=== PATIENT | male | born 2000 | race Caucasian/White ===

== ENCOUNTER 2023-11-18 01:12 | Emergency (ER) | payer BC ==
[~2023-11-18] VITALS: Ht 180.3 cm; Wt 68.0 kg
[2023-11-18] MEDS ORDERED: FAMOTIDINE/PF INJ 20 MG/2 ML VIAL IV ONE (01:30)
[2023-11-18] MEDS ORDERED: methylPREDNISolone SOD SUCC 125 MG/2ML VIAL ONE (01:30)
[2023-11-18] MEDS ORDERED: EPINEPHRINE (1:1000) 1 MG/ML AMPUL ONE (01:30)
[2023-11-18] MEDS: IV NS 0.9% 1,000 ML BAG IV ONE (01:35)
[2023-11-18] MEDS: methylPREDNISolone SOD SUCC 125 MG/2ML VIAL IV ONE (01:35)
[2023-11-18] MEDS: FAMOTIDINE/PF INJ 20 MG/2 ML VIAL IV ONE (01:35)
[2023-11-18] MEDS: EPINEPHRINE (1:1000) 1 MG/ML AMPUL SUBCUT ONE (01:35)
[2023-11-18] MEDS ORDERED: ONDANSETRON HCL/PF 4 MG/2 ML VIAL ONE (01:40)
[2023-11-18] MEDS: ONDANSETRON HCL/PF 4 MG/2 ML VIAL IV ONE (01:45)
[2023-11-18] MEDS ORDERED: ONDA4TAB5 PO (02:19)
[2023-11-18] MEDS ORDERED: CETI-90 PO (02:19)
[2023-11-18] MEDS ORDERED: PRED50TA PO (02:19)
[2023-11-18] MEDS ORDERED: EPIN0.3P3 IM (02:19)
[2023-11-18] MEDS ORDERED: FAMO-131 PO (02:19)
[2023-11-18 02:44] VITALS: BP 118/93; TEMP 98.5; O2SAT 98
== END 2023-11-18 02:45 | disposition home or self-care (01) ==
LOC: ER 01:14
DX: L29.9 Pruritus, unspecified (principal); T78.1XXA Other adverse food reactions, not elsewhere classified, initial encounter; X58.XXXA Exposure to other specified factors, initial encounter
CPT/HCPCS: 99284; 96374; 96375; 96361; J0171; J3490; J2919; J2405; J7030